=== PATIENT | female | born 1940 | race Caucasian/White ===

== ENCOUNTER 2020-02-17 19:52 | Emergency (ER) | payer MEDICARE, BC ==
--- NOTE | 2020-02-17 19:58 | EDM.PDOC ---
ED HPI GENERAL MEDICAL PROBLEM - General Chief Complaint: General Stated Complaint: SOB, hypoxic Time Seen by Provider: 02/17/20 19:55 Source of Information: Reports: Patient, EMS History Limitations: Reports: No Limitations - History of Present Illness INITIAL COMMENTS - FREE TEXT/NARRATIVE: Pt presents SOB because oxygen concentrator quit at home States oxygen home care said they would not fix it until tomorrow Pt needs home oxygen continuously No other complaints Onset: Today, Gradual Duration: Hour(s):, Getting Worse Location: Reports: Chest - Related Data Allergies Allergy/AdvReac Type Severity Reaction Status Date / Time No Known Allergies Allergy Verified 02/17/20 19:54 ED ROS GENERAL - Review of Systems Review Of Systems: See Below HEENT: Reports: No Symptoms Respiratory: Reports: Shortness of Breath Cardiovascular: Reports: No Symptoms GI/Abdominal: Reports: No Symptoms ED EXAM, GENERAL - Physical Exam Exam: See Below Exam Limited By: No Limitations General Appearance: Moderate Distress Throat/Mouth: Normal Oropharynx Respiratory/Chest: Decreased Breath Sounds GI/Abdominal: Soft, Non-Tender Course - Re-Assessments/Exams Free Text/Narrative Re-Assessment/Exam: 02/17/20 19:57 Pt stable in ER Home oxygen provider contacted Will make arrangements to fix tonight Departure - Departure Time of Disposition: 20:00 Disposition: Home, Self-Care 01 Clinical Impression: COPD (chronic obstructive pulmonary disease) Qualifiers: COPD type: unspecified COPD Qualified Code(s): J44.9 - Chronic obstructive pulmonary disease, unspecified - Discharge Information *PRESCRIPTION DRUG MONITORING PROGRAM REVIEWED*: Not Applicable *COPY OF PRESCRIPTION DRUG MONITORING REPORT IN PATIENT KLARISSA: Not Applicable Instructions: Chronic Obstructive Pulmonary Disease Exacerbation, [id number] Additional Instructions: Follow up in clinic
== END 2020-02-17 22:00 | disposition home or self-care (01) ==
LOC: LL.ED 19:52
DX: J44.9 Chronic obstructive pulmonary disease, unspecified (principal); Z99.81 Dependence on supplemental oxygen
CPT/HCPCS: 99282; 99285

== ENCOUNTER 2021-03-10 11:17 | Emergency (ER) | payer MEDICARE, BC ==
--- NOTE | 2021-03-10 12:15 | EDM.PDOC ---
ED HPI GENERAL MEDICAL PROBLEM - General Chief Complaint: General Stated Complaint: confusion Time Seen by Provider: 03/10/21 11:29 Source of Information: Reports: Patient, EMS History Limitations: Reports: Altered Mental Status - History of Present Illness INITIAL COMMENTS - FREE TEXT/NARRATIVE: Patient brought her by EMS after family member reported increased confusion. Patient apparently has chronic baseline confusion. No other information obtained. Family member is reportedly coming to ER but as of yet no one has arrived. Patient is happy, without complaints, and obviously confused. - Related Data Allergies Allergy/AdvReac Type Severity Reaction Status Date / Time No Known Allergies Allergy Verified 03/10/21 11:37 Home Meds: Home Meds Albuterol [Ventolin HFA] 1 - 2 inh INH Q4HR PRN 03/10/21 [History] LORazepam [Ativan] 1 tab PO DAILY 03/10/21 [History] Montelukast Sodium 1 tab PO BEDTIME 03/10/21 [History] PARoxetine HCL [Paroxetine HCl] 1 tab PO DAILY 03/10/21 [History] Roflumilast [Daliresp] 500 mcg PO DAILY 03/10/21 [History] Past Medical History HEENT History: Reports: Allergic Rhinitis, Hard of Hearing, Impaired Vision, Macular Degeneration Cardiovascular History: Reports: Heart Murmur, Other (See Below) Other Cardiovascular History: 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 Respiratory History: Reports: COPD Gastrointestinal History: Reports: Chronic Constipation Genitourinary History: Reports: Urinary Incontinence, Other (See Below) Other Genitourinary History: Occasional incontinece Psychiatric History: Reports: Anxiety Hematologic History: Reports: B12 Deficiency Dermatologic History: Reports: Eczema - Infectious Disease History Infectious Disease History: Reports: Rheumatic Fever - Past Surgical History HEENT Surgical History: Reports: Cataract Surgery, Tonsillectomy GI Surgical History: Reports: Cholecystectomy, Colonoscopy Social & Family History - Family History Cardiac: Reports: SD Neurological: Reports: CVA Psychiatric: Reports: Anxiety Endocrine/Metabolic: Reports: Diabetes, type II - Caffeine Use Caffeine Use: Reports: None ED ROS GENERAL - Review of Systems Review Of Systems: Unable To Obtain Reason Not Obtained: unable to obtain accurately due to patient's confusion. ED EXAM, GENERAL - Physical Exam Exam: See Below Exam Limited By: No Limitations General Appearance: Alert, No Apparent Distress, Thin Eye Exam: Bilateral Eye: EOMI, PERRL Ears: Normal External Exam, Normal Canal, Hearing Grossly Normal Nose: No: Nasal Deformity, Nasal Swelling, Nasal Drainage Throat/Mouth: Normal Lips, Normal Voice, No Airway Compromise Head: Atraumatic, Normocephalic Neck: Normal Inspection, Supple, Non-Tender, Full Range of Motion Respiratory/Chest: No Respiratory Distress, Lungs Clear, Normal Breath Sounds, No Accessory Muscle Use Cardiovascular: Normal Peripheral Pulses, Regular Rate, Rhythm, No Murmur GI/Abdominal: Normal Bowel Sounds, Soft, Non-Tender, No Distention (Female) Exam: Deferred Rectal (Female) Exam: Deferred Back Exam: No: CVA Tenderness (L), CVA Tenderness (R), Muscle Spasm, Paraspinal Tenderness, Vertebral Tenderness Extremities: Non-Tender, No Pedal Edema, Normal Capillary Refill, Other (equal tone/strength) Neurological: Alert, Memory Loss Recent Events, Other (confused) Psychiatric: Normal Affect, Normal Mood Skin Exam: Warm, Dry, Normal Color Course - Vital Signs Last Recorded V/S: Last Vital Signs Temp 36.4 C 03/10/21 11:20 Pulse 98 03/10/21 13:30 Resp 20 03/10/21 13:30 BP 113/61 03/10/21 13:30 Pulse Ox 100 03/10/21 13:30 - Orders/Labs/Meds Orders: Active Orders 24 hr Category Date Time Status Chest 1V Frontal [CR] Stat Exams 03/10/21 11:29 Taken Head wo Cont [CT] Stat Exams 03/10/21 12:22 Taken Labs: Laboratory Tests 03/10/21 03/10/21 03/10/21 Range/Units 11:52 11:52 11:52 WBC 8.9 (4.0-10.2) K/uL RBC 4.41 (3.77-5.09) M/uL Hgb 12.6 (11.7-15.5) g/dL Hct 39.2 (34.0-46.0) % MCV 88.9 (84.0-98.0) fL MCH 28.6 (28.2-33.3) pg MCHC 32.1 (31.7-36.0) g/dL RDW 14.3 H (11.2-14.1) % Plt Count 333 (150-350) K/uL Neut % (Auto) 83.4 H (45.0-80.0) % Lymph % (Auto) 6.1 L (10.0-50.0) % Bowman % (Auto) 10.2 (2.0-14.0) % Eos % (Auto) 0.2 (0.0-5.0) % Baso % (Auto) 0.1 (0.0-2.0) % Neut # (Auto) 7.41 H (1.40-7.00) K/uL Lymph # (Auto) 0.54 (0.50-3.50) K/uL Bowman # (Auto) 0.91 (0.00-1.00) K/uL Eos # (Auto) 0.02 (0.00-0.50) K/uL Baso # (Auto) 0.01 (0.00-0.20) K/uL Sodium 140 (136-145) mmol/L Potassium 4.0 (3.5-5.1) mmol/L Chloride 100 (98-107) mmol/L Carbon Dioxide 33.3 H (21.0-32.0) mmol/L Anion Gap 10.7 (7-15) meq/L BUN 16 (7-18) mg/dL Creatinine 0.89 (0.51-1.17) mg/dL Est Cr Clr Drug Dosing TNP Estimated GFR (MDRD) > 60 mL/min Glucose 113 H (70-99) mg/dL Lactic Acid 0.9 (0.4-2.0) mmol/L Calcium 9.8 (8.5-10.1) mg/dL Magnesium 1.8 (1.8-2.4) mg/dL Total Bilirubin 0.4 (0.2-1.0) mg/dL AST 19 (15-37) U/L ALT 26 (12-78) U/L Alkaline Phosphatase 91 (46-116) IU/L NT-Pro-B Natriuret Pep 275 H (0-125) pg/mL Total Protein 6.5 (6.4-8.2) g/dL Albumin 3.0 L (3.4-5.0) g/dL Specimen Type Urine Color Urine Appearance Urine pH (5.0-9.0) Ur Specific [place] (1.005-1.030) Urine Protein (NEGATIVE) mg/dL Urine Glucose (UA) (NEGATIVE) mg/dL Urine Ketones (NEGATIVE) mg/dL Urine Occult Blood (NEGATIVE) Urine Nitrite (NEGATIVE) Urine Bilirubin (NEGATIVE) Urine Urobilinogen (0.2-1.0) E.U./dL Ur Leukocyte Esterase (NEGATIVE) Urine RBC /HPF Urine WBC /HPF Ur Epithelial Cells /LPF Urine Bacteria (NONE TO FEW) /HPF Urinalysis Comment 03/10/21 Range/Units 12:07 WBC (4.0-10.2) K/uL RBC (3.77-5.09) M/uL Hgb (11.7-15.5) g/dL Hct (34.0-46.0) % MCV (84.0-98.0) fL MCH (28.2-33.3) pg MCHC (31.7-36.0) g/dL RDW (11.2-14.1) % Plt Count (150-350) K/uL Neut % (Auto) (45.0-80.0) % Lymph % (Auto) (10.0-50.0) % Bowman % (Auto) (2.0-14.0) % Eos % (Auto) (0.0-5.0) % Baso % (Auto) (0.0-2.0) % Neut # (Auto) (1.40-7.00) K/uL Lymph # (Auto) (0.50-3.50) K/uL Bowman # (Auto) (0.00-1.00) K/uL Eos # (Auto) (0.00-0.50) K/uL Baso # (Auto) (0.00-0.20) K/uL Sodium (136-145) mmol/L Potassium (3.5-5.1) mmol/L Chloride (98-107) mmol/L Carbon Dioxide (21.0-32.0) mmol/L Anion Gap (7-15) meq/L BUN (7-18) mg/dL Creatinine (0.51-1.17) mg/dL Est Cr Clr Drug Dosing Estimated GFR (MDRD) mL/min Glucose (70-99) mg/dL Lactic Acid (0.4-2.0) mmol/L Calcium (8.5-10.1) mg/dL Magnesium (1.8-2.4) mg/dL Total Bilirubin (0.2-1.0) mg/dL AST (15-37) U/L ALT (12-78) U/L Alkaline Phosphatase (46-116) IU/L NT-Pro-B Natriuret Pep (0-125) pg/mL Total Protein (6.4-8.2) g/dL Albumin (3.4-5.0) g/dL Specimen Type Urinqcath Urine Color Yellow Urine Appearance Slightly cloudy Urine pH 5.0 (5.0-9.0) Ur Specific [place] >= 1.030 (1.005-1.030) Urine Protein 100 H (NEGATIVE) mg/dL Urine Glucose (UA) Negative (NEGATIVE) mg/dL Urine Ketones 15 H (NEGATIVE) mg/dL Urine Occult Blood Negative (NEGATIVE) Urine Nitrite Negative (NEGATIVE) Urine Bilirubin Large H (NEGATIVE) Urine Urobilinogen 0.2 (0.2-1.0) E.U./dL Ur Leukocyte Esterase Negative (NEGATIVE) Urine RBC Not seen /HPF Urine WBC 0-5 /HPF Ur Epithelial Cells Many H /LPF Urine Bacteria Moderate H (NONE TO FEW) /HPF Urinalysis Comment - Re-Assessments/Exams Free Text/Narrative Re-Assessment/Exam: 03/10/21 12:12 Patient pleasantly confused. Is on chronic home O2. No acute complaints when asked. Knows she is in [facility]. Unable to say year. Knows name/birthdate. Thinks parents are still alive and is concerned that her mother has dementia and father had a heart attack. Cooperative. 03/10/21 18:45 No focal acute findings on workup. Patient happy, sleeping at times. Eventually contact made with family after prolonged period of time when no member showed up at ER. Per nurse conversation with family, family was at point where they want patient to go to care home and they thought by sending her to ER that we would "just keep her". Family informed that patient did not meet criteria for acute admission. At that time patient was discharged home with them with no changes to current medications. They are to follow up with Israel Maxwell/patient's primary on Saturday in order to initiate care home placement. They do have an appointment in place. Departure - Departure Time of Disposition: 15:00 Disposition: Home, Self-Care 01 Condition: Good Clinical Impression: Dementia Qualifiers: Dementia type: unspecified type Dementia behavioral disturbance: without behavioral disturbance Qualified Code(s): F03.90 - Unspecified dementia without behavioral disturbance - Discharge Information *PRESCRIPTION DRUG MONITORING PROGRAM REVIEWED*: Not Applicable *COPY OF PRESCRIPTION DRUG MONITORING REPORT IN PATIENT KLARISSA: Not Applicable Referrals: Israel Maxwell PA [Primary Care Provider] - Forms: ED Department Discharge Additional Instructions: Family to follow up with patient's primary provider, Israel Maxwell, on Saturday and work with him on care home placement for patient. Sepsis Event Note (ED) - Focused Exam Vital Signs: Vital Signs Temp Pulse Resp BP Pulse Ox 03/10/21 13:30 98 20 113/61 100 03/10/21 11:35 94 18 126/62 100 03/10/21 11:20 36.4 C 98 20 125/65 100 - My Orders Last 24 Hours: My Active Orders 03/10/21 11:29 Chest 1V Frontal [CR] Stat 03/10/21 12:22 Head wo Cont [CT] Stat - Assessment/Plan Last 24 Hours: My Active Orders 03/10/21 11:29 Chest 1V Frontal [CR] Stat 03/10/21 12:22 Head wo Cont [CT] Stat
[2021-03-10 12:41] LABS: CHLORIDE,CL 100 mmol/L (98-107); SODIUM,NA 140 mmol/L (136-145)
[2021-03-10 12:56] LABS: ANION GAP 10.7 meq/L (7-15)
== END 2021-03-10 15:20 | disposition home or self-care (01) ==
LOC: LL.ED 11:17
DX: F03.90 Unspecified dementia, unspecified severity, without behavioral disturbance, psychotic disturbance, mood disturbance, and anxiety (principal); J44.9 Chronic obstructive pulmonary disease, unspecified
CPT/HCPCS: 36415; 70450; 71045; 80053; 81001; 83605; 83735; 83880; 85025; 99284; 99285-25

== ENCOUNTER 2021-08-26 12:01 | Emergency (ER) | payer MEDICARE, BC ==
[2021-08-26 12:56] LABS: CHLORIDE,CL 102 mmol/L (98-107); SODIUM,NA 142 mmol/L (136-145)
[2021-08-26 12:57] LABS: ANION GAP 5.5 meq/L (7-15)
[2021-08-26 13:07] LABS: CORONAVIRUS COVID-19 NAA NEGATIVE (NEGATIVE); RESPIRATORY SYNCYTIAL VIR NAA NEGATIVE (NEGATIVE)
[2021-08-26] MEDS ORDERED: predniSONE 20 MG Tab PO ONE (13:13)
[2021-08-26] MEDS ORDERED: Levofloxacin 500 MG Tab PO ONE (13:17)
== END 2021-08-26 13:35 ==
LOC: LL.ED 12:01
DX: J44.1 Chronic obstructive pulmonary disease with (acute) exacerbation (principal); Z88.1 Allergy status to other antibiotic agents; Z20.822 Contact with and (suspected) exposure to COVID-19
CPT/HCPCS: 0241U; 36415; 71046; 80053; 83605; 84484; 85025; 86140; 93005; 93010; 99284; 99285-25; A9270-GY; J7512